=== PATIENT | female | born 2005 | race Caucasian/White ===

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

== ENCOUNTER → 2024-05-22 | Outpatient (REF) | payer OTHER ==
[~2024-05-22] MED LIST changes: +ONDA-282 PO; -ONDA4TAB6 PO
== END ==
LOC: M LAB REF 20:47
PROVIDERS: ATTEND Physician Assistant Medical
DX: J02.9 Acute pharyngitis, unspecified (principal)

== ENCOUNTER → 2024-07-06 | Outpatient (REF) | LOC: M EMP 09:36 | PROVIDERS: ATTEND Family Medicine | DX: Z11.52 Encounter for screening for COVID-19 (principal) ==

== ENCOUNTER → 2024-07-10 | Outpatient (REF) | LOC: M EMP 08:13 | PROVIDERS: ATTEND Family Medicine | DX: Z11.52 Encounter for screening for COVID-19 (principal) ==

== ENCOUNTER 2024-07-27 08:33 | Emergency (ER) | payer OTHER ==
[~2024-07-27] VITALS: Ht 167.6 cm; Wt 84.3 kg
[2024-07-27 08:34] VITALS: BP 124/77; TEMP 96.2; O2SAT 99
[2024-07-27] MEDS: ACETAMINOPHEN 325 MG TAB PO ONE (09:09)
== END 2024-07-27 09:22 | disposition home or self-care (01) ==
LOC: M ED 08:33
DX: M25.561 Pain in right knee (principal)

== ENCOUNTER → 2025-02-09 | Outpatient (REF) | LOC: M EMP 13:14 | PROVIDERS: ATTEND Family Medicine | DX: Z11.52 Encounter for screening for COVID-19 (principal) ==